=== PATIENT | female | born 1960 | race Caucasian/White ===

== ENCOUNTER 2018-06-26 17:35 | Emergency (ER) | payer OTHER ==
[~2018-06-26] VITALS: Ht 149.9 cm; Wt 52.2 kg
[2018-06-27] MEDS ORDERED: PROTONIX40 MG PO (08:17)
[2018-06-27] MEDS ORDERED: CIPROFLOXACIN500 MG PO (08:17)
[2018-06-27] MEDS ORDERED: METRONIDAZOLE500 MG PO (08:17)
[2018-06-27] MEDS ORDERED: INTESTINEX680 M1 PO (08:17)
== END 2018-06-27 09:31 | disposition home or self-care (01) ==
LOC: ER 17:35
DX: K57.92 Diverticulitis of intestine, part unspecified, without perforation or abscess without bleeding (principal); R51 Headache

== ENCOUNTER 2018-07-01 13:48 | Inpatient (IN) | payer OTHER ==
[~2018-07-01] VITALS: Ht 149.9 cm; Wt 52.2 kg
[~2018-07-01 13:48] MED LIST: CIPROFLOXACIN500 MG PO; INTESTINEX680 M1 PO; METRONIDAZOLE500 MG PO; PROTONIX40 MG PO
[2018-07-01] MEDS ORDERED: ZANTAC150 MG (14:27)
[2018-07-07] MEDS ORDERED: AMOX-CLAV 875-1 EACH PO (15:22)
== END 2018-07-07 15:50 | disposition home or self-care (01) | DRG 392 ==
LOC: ER 13:48 → SEC-K 07-02 08:53 → MEDJ 07-02 08:53 → SEC-K 07-02 10:00 → MEDJ 07-02 10:20 → MEDI 07-05 12:27 → MEDJ 07-05 12:52
DX: K57.32 Diverticulitis of large intestine without perforation or abscess without bleeding (principal); K52.89 Other specified noninfective gastroenteritis and colitis; K29.00 Acute gastritis without bleeding

== ENCOUNTER 2022-06-21 05:30 | Day surgery (SDC) | payer OTHER ==
[~2022-06-21] VITALS: Ht 149.9 cm; Wt 54.4 kg
[~2022-06-21 05:30] MED LIST changes: +AMOX-CLAV 875-1 EACH PO; +ZANTAC150 MG
== END 2022-06-21 15:00 | disposition home or self-care (01) ==
LOC: CIR.AMB 05:30
PROVIDERS: ATTEND Specialist
DX: K40.90 Unilateral inguinal hernia, without obstruction or gangrene, not specified as recurrent (principal); Z20.822 Contact with and (suspected) exposure to COVID-19; Z88.6 Allergy status to analgesic agent; K21.9 Gastro-esophageal reflux disease without esophagitis

== ENCOUNTER 2025-01-08 07:26 | Emergency (ER) | payer OTHER ==
[~2025-01-08] VITALS: Ht 149.9 cm; Wt 56.7 kg
[2025-01-08] MEDS ORDERED: FAMOtidine 10 MG/ML (4ML VIAL) IV ONE (09:00)
[2025-01-08] MEDS ORDERED: MORPHINE SULFATE 2 MG/ML SYRINGE IV ONE (09:00)
[2025-01-08] MEDS ORDERED: 0.9 % SODIUM CHLORIDE 1,000 ML IV ONE (09:00)
[2025-01-08] MEDS ORDERED: CEFTRIAXONE SODIUM 1,000 MG VIAL IV ONE (09:00)
[2025-01-08] MEDS ORDERED: ONDANSETRON HCL 2 MG/ML VIAL IV ONE (09:00)
[2025-01-08] MEDS ORDERED: ONDANSETRON HCL 2 MG/ML VIAL ONE (09:06)
[2025-01-08] MEDS ORDERED: CEFTRIAXONE SODIUM 2,000 MG VIAL ONE (09:07)
[2025-01-08] MEDS ORDERED: FAMOTIDINE/PF 20 MG/2 ML VIAL ONE (09:07)
[2025-01-08 09:39] LABS: HEMATOCRIT 40.7 % (36.0-45.00); HEMOGLOBIN 13.8 g/dL (12.0-15.00); MEAN CORPUSCULAR HEMOGLOBIN 29.5 pg (27.00-32.0); PLATELET COUNT 301 K/uL (150-450); RED BLOOD COUNT 4.68 M/uL (4.00-6.00); RED CELL DISTRIBUTION WIDTH 12.6 % (11.5-14.5)
[2025-01-08 10:06] LABS: INR 1.01
[2025-01-08 10:20] LABS: ALBUMIN 3.8 gm/dL (3.4-5.0); BILIRUBIN TOTAL 0.75 mg/dL (0.3-1.2); CALCIUM 9.1 mg/dL (8.5-10.1); CREATININE SERUM 0.64 mg/dL (0.55-1.02); GFR 93.42; GLOBULINA 3.7 G/DL (2.4-3.5); POTASSIUM 4.08 mEq/L (3.5-5.1); TOTAL PROTEIN 7.5 gm/dL (6.4-8.2)
[2025-01-08 10:58] LABS: PH,URINE 7.5 (5.0-8.0); URINE APPEARANCE Cloudy; URINE BILIRRUBIN Negative (NEGATIVE); URINE BLOOD Negative; URINE COLOR Yellow; URINE GLUCOSE Negative (NEGATIVE); URINE KETONE Trace (NEGATIVE); URINE LEUKOCYTE Trace; URINE NITRATE Negative; URINE PROTEIN Negative (NEGATIVE); URINE UROBILINOGEN 0.2 E.U./dl
[2025-01-08 11:02] LABS: URINE BACTERIA 24.4 uL (0.0-1933); URINE RBC 13.8 uL (0.0-20.8); URINE WBC 58.3 uL (0.0-23.2)
[2025-01-08 11:08] LABS: URINE CAST 0.29 uL (0.0-1.40)
[2025-01-08] MEDS ORDERED: ZOFRAN8 MG PO (12:17)
[2025-01-08] MEDS ORDERED: PEPCID AC20 MG PO (12:17)
[2025-01-08] MEDS ORDERED: DICY20TA PO (12:17)
[2025-01-08] MEDS ORDERED: METRONIDAZOLE500 MG PO (12:17)
[2025-01-08] MEDS ORDERED: CIPRO500 MG PO (12:17)
== END 2025-01-08 12:22 | disposition home or self-care (01) ==
LOC: ER 07:28
PROVIDERS: General Practice
DX: R10.32 Left lower quadrant pain (principal); R11.2 Nausea with vomiting, unspecified; Z88.6 Allergy status to analgesic agent; K57.30 Diverticulosis of large intestine without perforation or abscess without bleeding